=== PATIENT | male | born 1980 | race African-American/Black ===

== ENCOUNTER 2016-12-30 00:41 | Emergency (ER) | payer MEDICAID | END 2016-12-30 01:00 | disposition left against medical advice (07) | LOC: ER 00:41 | DX: F10.129 Alcohol abuse with intoxication, unspecified (principal); Z53.21 Procedure and treatment not carried out due to patient leaving prior to being seen by health care provider ==

== ENCOUNTER 2018-03-01 11:38 | Emergency (ER) | payer MEDICAID ==
[~2018-03-01] VITALS: Ht 175.3 cm; Wt 100.0 kg
[2018-03-01] MEDS ORDERED: SODIUM CHLORIDE 0.9% 1,000 ML IV ONE (12:03)
[2018-03-01] MEDS ORDERED: ACETAMINOPHEN 650MG SUPP PR ONE (12:15)
[2018-03-01 12:55] LABS: HEMATOCRIT. 43.7 % (42.0-52.0); HEMOGLOBIN. 14.6 g/dL (14.0-18.0); MEAN CORPUSCULAR HEMOGLOBIN 30.2 pg (28.0-32.0); MEAN CORPUSCULAR VOLUME 90.8 fL (80.0-94.0); MEAN PLATELET VOLUME 10.1 fl (7.4-10.4); PLATELET 240 x1000/uL (130-400); RED BLOOD CELL COUNT 4.82 mill/uL (4.7-6.1); RED CELL DISTRIBUTION WIDTH 14.6 % (11.6-14.6)
[2018-03-01 12:59] LABS: CLARITY URINE CLOUDY (CLEAR); COLOR URINE YELLOW (YELLOW); KETONES URINE TRACE (NEGATIVE); LEUKOCYTE ESTERASE URINE NEGATIVE (NEGATIVE); NITRITE URINE NEGATIVE (NEGATIVE); OCCULT BLOOD URINE 2+ (NEGATIVE); PH URINE 5.5 (4.5-8.0); PROTEIN URINE 3+ (NEGATIVE); SPECIFIC GRAVITY URINE 1.019 (1.005-1.030)
[2018-03-01 13:02] LABS: CHLORIDE 110 mEq/L (98-107)
[2018-03-01 13:07] LABS: ETHANOL BLOOD < 10 mg/dL
[2018-03-01 13:11] LABS: CREATINE KINASE 486 IU/L (39-308)
[2018-03-01 13:30] LABS: *AMPHETAMINES SCREEN URINE NEGATIVE (NEGATIVE); *BARBITURATES SCREEN URINE NEGATIVE (NEGATIVE); *BENZODIAZEPINES SCREEN URINE PRESUMTIVE POSITIVE (NEGATIVE); *COCAINE SCREEN URINE NEGATIVE (NEGATIVE); METHADONE URINE SCREEN NEGATIVE (NEGATIVE); OPIATES URINE SCREEN NEGATIVE (NEGATIVE); PHENCYCLIDINE URINE SCREEN PRESUMTIVE POSITIVE (NEGATIVE)
[2018-03-01 13:31] LABS: CANNABINOID URINE SCREEN PRESUMTIVE POSITIVE (NEGATIVE)
[2018-03-01 13:38] LABS: PLATELET ESTIMATE NORMAL
[2018-03-01] MEDS ORDERED: SODIUM CHLORIDE 0.9% 1,000 ML IV NR (13:51)
[2018-03-01 15:40] VITALS: BP 117/67
== END 2018-03-01 16:28 | disposition home or self-care (01) ==
LOC: ER 11:38
DX: T40.991A Poisoning by other psychodysleptics [hallucinogens], accidental (unintentional), initial encounter (principal); T42.4X1A Poisoning by benzodiazepines, accidental (unintentional), initial encounter; T40.7X1A Poisoning by cannabis (derivatives), accidental (unintentional), initial encounter; G92 Toxic encephalopathy; G40.909 Epilepsy, unspecified, not intractable, without status epilepticus; D72.829 Elevated white blood cell count, unspecified; N28.9 Disorder of kidney and ureter, unspecified; R31.29 Other microscopic hematuria; Z78.1 Physical restraint status; Y92.488 Other paved roadways as the place of occurrence of the external cause
CPT/HCPCS: 36415; 70450; 71045; 80053; 80305; 80307; 80329; 81003; 82550; 85025; 96360; 96361; 99285; G0482; J7030; Z7610